=== PATIENT | female | born 1985 | race Caucasian/White ===

== ENCOUNTER 2020-10-01 13:37 | Emergency (ER) | payer SELFPAY ==
[~2020-10-01] VITALS: Ht 162.6 cm; Wt 74.8 kg
[2020-10-01 16:21] VITALS: BP 113/81
[2020-10-01] MEDS ORDERED: traMADol HCL 50 MG TAB PO ONE (18:15)
== END 2020-10-01 18:34 | disposition home or self-care (01) ==
LOC: ER 13:37
DX: L02.811 Cutaneous abscess of head [any part, except face] (principal); F17.210 Nicotine dependence, cigarettes, uncomplicated

== ENCOUNTER 2021-09-22 01:03 | Emergency (ER) | payer MEDICAID, OTHER ==
[~2021-09-22] VITALS: Ht 160 cm; Wt 56.7 kg
[2021-09-22 03:16] VITALS: BP 111/65
[2021-09-22] MEDS: KETOROLAC TROMETH 60MG/2ML VIAL IM ONE (04:13)
== END 2021-09-22 04:24 | disposition home or self-care (01) ==
LOC: ER 01:05
DX: S60.512A Abrasion of left hand, initial encounter (principal); S60.511A Abrasion of right hand, initial encounter; F17.210 Nicotine dependence, cigarettes, uncomplicated; X58.XXXA Exposure to other specified factors, initial encounter; Y93.89 Activity, other specified; Y92.89 Other specified places as the place of occurrence of the external cause; Y99.8 Other external cause status
CPT/HCPCS: 96372; 99283; J1885